=== PATIENT | male | born 1960 | race Caucasian/White ===

== ENCOUNTER 2021-09-05 20:57 | Emergency (ER) | payer BC ==
[~2021-09-05] VITALS: Ht 172.7 cm; Wt 84.1 kg
[2021-09-05 22:35] VITALS: BP 136/88
== END 2021-09-05 22:35 | disposition home or self-care (01) ==
LOC: ED 20:57
DX: S01.511A Laceration without foreign body of lip, initial encounter (principal); W22.8XXA Striking against or struck by other objects, initial encounter; Y92.59 Other trade areas as the place of occurrence of the external cause; Y99.0 Civilian activity done for income or pay

== ENCOUNTER → 2024-07-02 | Outpatient (CLI) | payer BC | LOC: RAD 17:05 | DX: M16.12 Unilateral primary osteoarthritis, left hip (principal); M77.32 Calcaneal spur, left foot ==

== ENCOUNTER → 2024-08-09 | Day surgery (SDC) | payer BC ==
[~2024-08-09] MED LIST: Lidocaine PF 2% (20 MG/ML) 5 ML VIAL ONE
== END ==
LOC: MSO 09:40
DX: Z12.11 Encounter for screening for malignant neoplasm of colon (principal); D12.5 Benign neoplasm of sigmoid colon; D12.3 Benign neoplasm of transverse colon; Z80.0 Family history of malignant neoplasm of digestive organs; Z87.891 Personal history of nicotine dependence
CPT/HCPCS: 00812; J2704; J7120